=== PATIENT | male | born 1975 | race Caucasian/White ===

== ENCOUNTER 2023-10-30 18:27 | Emergency (ER) | payer OTHER ==
[2023-10-30] MEDS ORDERED: NA CHLORIDE 0.9% 1,000 ML ONE (19:04)
[2023-10-30 19:24] LABS: Absolute Basophils 0.1 K/uL (0-0.5); Absolute Lymphocytes (CBC) 2.4 K/uL (0.7-4.9); Absolute Neutrophil 7.1 K/uL (1.8-8.0); Basophils % 0.5 % (0-1.3); Eosinophils % 0.2 % (0-4.4); Hematocrit 45.7 % (39.6-49.0); Hemoglobin 15.8 g/dL (13.6-17.9); Lymphocytes % 22.4 % (15.3-44.8); MCHC 34.5 g/dL (32.0-36.0); MCV 92.6 fL (80-100); MPV 8.2 fL (7.6-11.3); Monocytes % 9.5 % (3.3-12.3); Neutrophils % 67.4 % (41.7-73.7); Nucleated Red Blood Cells % 0.1 % (0-0); Platelets 227 thou/uL (152-406); RBC Red Blood Cell Count 4.93 M/uL (4.33-5.43); Red Cell Distribution Width 12.2 % (12.1-15.2)
[2023-10-30 19:49] LABS: Albumin 4.4 g/dL (3.4-5.0); Anion Gap 12.8 mEq/L (5.0-15.0); Bilirubin Total 1.5 mg/dL (0.2-1.0); Globulin 4.6 g/dL (2.3-3.5); Magnesium 2.3 mg/dL (1.6-2.4); Potassium 2.8 mEq/L (3.5-5.1)
[2023-10-30] MEDS ORDERED: POTASSIUM CL SA 10 MEQ TAB PO ONE (20:46)
--- NOTE | 2023-10-30 21:46 | ER ---
Nurse's Notes [facility] Name: Alejandro Horan Jr Age: 47 yrs Sex: Male : 1975 Arrival Date: 10/30/2023 Time: 18:27 Bed 16 Private MD: Diagnosis: Rash and other nonspecific skin eruption;Dehydration;Hypokalemia Presentation: 10/29 18:38 Chief complaint: Patient states: pt has been sleeping a lot the last several days an as6 has gotten easily fatigued. pt has rash to trunk and arms. Coronavirus screen: At this time, the client does not indicate any symptoms associated with coronavirus-19. Ebola Screen: No symptoms or risks identified at this time. Initial Sepsis Screen: Does the patient meet any 2 criteria? No. Patient's initial sepsis screen is negative. Does the patient have a suspected source of infection? No. Patient's initial sepsis screen is negative. Risk Assessment: Do you want to hurt yourself or someone else? Patient reports no desire to harm self or others. Onset of symptoms was October 28, 2023. 18:38 Method Of Arrival: Ambulatory as6 18:38 Acuity: DC 3 as6 Historical: - Allergies: 18:41 No Known Allergies; as6 - PMHx: 18:41 None; as6 - PSHx: 18:41 abdominal; as6 - Immunization history:: Adult Immunizations up to date. - Infectious Disease History:: Denies. - Social history:: Smoking status: Patient reports use of chewing tobacco. Screenin:21 [facility] ED Fall Risk Assessment (Adult) History of falling in the last 3 months, tl4 including since admission No falls in past 3 months (0 pts) Confusion or Disorientation No (0 pts) Intoxicated or Sedated No (0 pts) Impaired Gait No (0 pts) Mobility Assist Device Used No (0 pt) Altered Elimination No (0 pt) Score/Fall Risk Level 0 - 2 = Low Risk Oriented to surroundings, Maintained a safe environment, Educated pt \T\ family on fall prevention, incl call for assistance when getting out of bed, Assessed \T\ reinforced patient's understanding of fall precautions. Abuse screen: Denies threats or abuse. Denies injuries from another. Nutritional screening: No deficits noted. Tuberculosis screening: No symptoms or risk factors identified. Assessment: 19:22 General: Appears in no apparent distress. Behavior is calm, cooperative. Pain: Denies tl4 pain. Neuro: Level of Consciousness is awake, alert, obeys commands, Oriented to person, place, time, situation, Moves all extremities. Full function Gait is steady, Speech is normal. Cardiovascular: Capillary refill < 3 seconds Patient's skin is warm and dry. Respiratory: Airway is patent Respiratory effort is even, unlabored, Respiratory pattern is regular, symmetrical, Breath sounds are clear bilaterally. GI: No deficits noted. : No signs and/or symptoms were reported regarding the genitourinary system. EENT: No signs and/or symptoms were reported regarding the EENT system. Derm: Rash noted that is red, raised, on chest, abdomen, right arm and left arm. Musculoskeletal: No signs and/or symptoms reported regarding the musculoskeletal system. 20:37 Reassessment: Patient and/or family updated on plan of care and expected duration. Pain tl4 level reassessed. Patient is alert, oriented x 3, equal unlabored respirations, skin warm/dry/pink. Patient denies pain at this time. 21:57 Reassessment: Patient and/or family updated on plan of care and expected duration. Pain tl4 level reassessed. Patient is alert, oriented x 3, equal unlabored respirations, skin warm/dry/pink. Vital Signs: 18:38 BP 155 / 107; Pulse 118; Resp 20 S; Temp 99(TE); Pulse Ox 97% on R/A; Weight 90.72 kg as6 (R); Height 6 ft. 0 in. (R); Pain 0/10; 19:00 BP 143 / 99; Pulse 89; Resp 16; Pulse Ox 100% on R/A; tl4 19:30 BP 134 / 95; Pulse 91; Resp 23; Pulse Ox 98% on R/A; tl4 20:00 BP 139 / 78; Pulse 83; Resp 20; Pulse Ox 98% on R/A; tl4 21:00 BP 134 / 85; Pulse 97; Resp 22; Pulse Ox 97% on R/A; tl4 21:58 BP 142 / 85; Pulse 98; Resp 19; Temp 97.8(TE); Pulse Ox 97% on R/A; Pain 0/10; tl4 18:38 Body Mass Index 27.12 (90.72 kg, 182.88 cm) as6 18:38 Pain Scale: Adult as6 21:58 Pain Scale: Adult tl4 ED Course: 18:31 Patient arrived in ED. im 18:33 [facility] kb 18:33 Laron Martinez MD is Attending Physician. kb 18:37 Arm band placed on. as6 18:41 Triage completed. as6 18:58 Satish Ramos, RN is Primary Nurse. tl4 19:18 EKG done, by ED staff. vk 19:20 Lipase Sent. tl4 19:20 CPK Sent. tl4 19:20 CMP Sent. tl4 19:20 CBC with Diff Sent. tl4 19:20 Magnesium Sent. tl4 19:20 Troponin HS Sent. tl4 19:20 No provider procedures requiring assistance completed. Initial lab(s) drawn, by me, tl4 sent to lab. Inserted saline lock: 22 gauge in left antecubital area, using aseptic technique. Blood collected. 19:21 Patient has correct armband on for positive identification. Placed in gown. Bed in low tl4 position. Call light in reach. Side rails up X 1. Provided Education on: ED process, call garza. Client placed on continuous cardiac and pulse oximetry monitoring. NIBP monitoring applied. wastewater treatment operator on. Door closed. Noise minimized. Lights dimmed. Moved to private room. 21:59 IV discontinued, intact, bleeding controlled, No redness/swelling at site. Pressure tl4 dressing applied. Administered Medications: 19:20 Drug: NS 0.9% IV 1000 ml IV at 1000 ml once Route: IV; Rate: 1000 ml; Site: left tl4 antecubital; Delivery: Primary tubing; 20:36 Follow up: Response: No adverse reaction; IV Status: Completed infusion; IV Intake: tl4 1000ml 20:48 Drug: Potassium Chloride PO 40 mEq PO once Route: PO; tl4 22:05 Follow up: Response: No adverse reaction tl4 Medication: 19:21 VIS not applicable for this client. tl4 Intake: 20:36 IV: 1000ml; Total: 1000ml. tl4 Outcome: 21:45 Discharge ordered by . kb 21:59 Discharged to home ambulatory, tl4 21:59 Condition: good 21:59 Discharge instructions given to patient, 21:59 Instructed on discharge instructions, follow up and referral plans. Demonstrated understanding of instructions, follow-up care, 22:05 Patient left the ED. tl4 Signatures: Julita Reardon, GLEN MOLINA-Manas Olmos, RN RN as6 Noemi Mccall Toni RN RN tl4 Tati Michel
--- NOTE | 2023-10-30 21:46 | EDPHYS ---
Physician Documentation [facility] Name: Alejandro Horan Jr Age: 47 yrs Sex: Male : 1975 Arrival Date: 10/30/2023 Time: 18:27 Bed 16 Private MD: ED Physician Laron Martinez HPI: 10/30 00:22 This 47 yrs old Male presents to ER via Ambulatory with complaints of Rash. kb 00:26 Patient is a 47-year-old male who presents for fatigue. States he used to be a heavy kb drinker but quit about 6 weeks ago. States he started using CBD Gummies after he stopped drinking then stopped using those 6 days ago. Was working in the yard on Saturday, 3 days ago, and got overheated and fatigued so he went to sleep around 1400 and didn't wake up until today. States his significant other told him he got up to use the restroom a couple of times but he does not remember that. Also reports rash to trunk and upper extremeties that he woke up with. Denies fever, cough, congestion. . Historical: - Allergies: 10/29 18:41 No Known Allergies; as6 - PMHx: 18:41 None; as6 - PSHx: 18:41 abdominal; as6 - Immunization history:: Adult Immunizations up to date. - Infectious Disease History:: Denies. - Social history:: Smoking status: Patient reports use of chewing tobacco. ROS: 10/30 00:26 Constitutional: As per HPI kb Exam: 00:26 Constitutional: This is a well developed, well nourished patient who is awake, alert, kb and in no acute distress. Head/Face: Normocephalic, atraumatic. ENT: Moist Mucous membranes Cardiovascular: Regular rate Respiratory: Respirations even and unlabored. No increased work of breathing. Talking in full sentences Abdomen/GI: Soft, non-tender. No distention MS/ Extremity: Pulses equal, no cyanosis. Neurovascular intact. Full, normal range of motion. Neuro: Awake and alert, GCS 15, oriented to person, place, time, and situation. Moves all extremities. Normal gait. 00:26 Skin: rash can be described as nonspecific, on the chest, abdomen, right arm and left arm, Vital Signs: 10/29 18:38 BP 155 / 107; Pulse 118; Resp 20 S; Temp 99(TE); Pulse Ox 97% on R/A; Weight 90.72 kg as6 (R); Height 6 ft. 0 in. (R); Pain 0/10; 19:00 BP 143 / 99; Pulse 89; Resp 16; Pulse Ox 100% on R/A; tl4 19:30 BP 134 / 95; Pulse 91; Resp 23; Pulse Ox 98% on R/A; tl4 20:00 BP 139 / 78; Pulse 83; Resp 20; Pulse Ox 98% on R/A; tl4 21:00 BP 134 / 85; Pulse 97; Resp 22; Pulse Ox 97% on R/A; tl4 21:58 BP 142 / 85; Pulse 98; Resp 19; Temp 97.8(TE); Pulse Ox 97% on R/A; Pain 0/10; tl4 18:38 Body Mass Index 27.12 (90.72 kg, 182.88 cm) as6 18:38 Pain Scale: Adult as6 21:58 Pain Scale: Adult tl4 MDM: 18:33 Patient medically screened. kb 10/30 00:26 Differential diagnosis: Dehydration, rhabdomyolysis, abnormal electrolytes, kidney kb failure. Data reviewed: vital signs, nurses notes. Consideration of Admission/Observation Escalation of care including admission/observation considered. Admission considered but patient reports he is feeling okay, is nontoxic in appearance, tolerating p.o. intake, afebrile, vitals within normal limits. Educated on return precautions and need for follow-up with PCP.. Counseling: I had a detailed discussion with the patient and/or guardian regarding the historical points, exam findings, and any diagnostic results supporting the discharge/admit diagnosis, lab results, radiology results, the need for outpatient follow up, a family practitioner, to return to the emergency department if symptoms worsen or persist or if there are any questions or concerns that arise at home. 10/29 18:45 Order name: CBC with Diff; Complete Time: 19:32 kb 10/29 18:45 Order name: Magnesium; Complete Time: 20:08 kb 10/29 18:45 Order name: Troponin HS; Complete Time: 20:08 kb 10/29 18:45 Order name: CMP; Complete Time: 20:08 kb 10/29 18:45 Order name: Lipase; Complete Time: 20:08 kb 10/29 18:45 Order name: CPK; Complete Time: 20:08 kb 10/29 18:45 Order name: EKG; Complete Time: 18:45 kb 10/29 18:45 Order name: Cardiac monitoring; Complete Time: 19:09 kb 10/29 18:45 Order name: EKG - Nurse/Tech; Complete Time: 19:18 kb 10/29 18:45 Order name: IV Saline Lock; Complete Time: 19:20 kb 10/29 18:45 Order name: Labs collected and sent; Complete Time: 19:20 kb 10/29 18:45 Order name: O2 Per Protocol; Complete Time: 19:20 kb 10/29 18:45 Order name: O2 Sat Monitoring; Complete Time: 19:20 kb 10/29 20:33 Order name: Vital Signs; Complete Time: 20:36 kb Administered Medications: 10/29 19:20 Drug: NS 0.9% IV 1000 ml IV at 1000 ml once Route: IV; Rate: 1000 ml; Site: left tl4 antecubital; Delivery: Primary tubing; 20:36 Follow up: Response: No adverse reaction; IV Status: Completed infusion; IV Intake: tl4 1000ml 20:48 Drug: Potassium Chloride PO 40 mEq PO once Route: PO; tl4 22:05 Follow up: Response: No adverse reaction tl4 Disposition Summary: 10/30/23 21:45 Discharge Ordered Notes: Location: Home kb Condition: Stable kb Diagnosis - Rash and other nonspecific skin eruption kb - Dehydration kb - Hypokalemia kb Followup: kb - With: Emergency Department - When: As needed - Reason: Worsening of condition Followup: kb - With: Private Physician - When: 2 - 3 days - Reason: Recheck today's complaints, Continuance of care, Re-evaluation by your physician Discharge Instructions: - Discharge Summary Sheet kb - Rash, Adult, [id number] kb - Dehydration, Adult, [id number] kb - Hypokalemia kb Forms: - Medication Reconciliation Form kb - Antibiotic Education kb - Prescription Opioid Use kb - Patient Portal Instructions kb - Leadership Thank You Letter kb Signatures: Dispatcher [employer] uJlita Arguelles FNP-C FNP-Ckb Slawson, Ashby, RN RN as6 Satish Ramos RN RN tl4 Corrections: (The following items were deleted from the chart) 18:45 18:45 CBC+H.LAB.BRZ ordered. EDMS EDMS 18:45 18:45 MAGNESIUM+C.LAB.BRZ ordered. EDMS EDMS 18:45 18:45 Troponin High Sensitivity+C.LAB.BRZ ordered. EDMS EDMS 18:45 18:45 COMPREHENSIVE METABOLIC PANEL+C.LAB.BRZ ordered. EDMS EDMS 18:45 18:45 LIPASE+C.LAB.BRZ ordered. EDMS EDMS 18:45 18:45 CREATINE PHOSPHOKINASE+C.LAB.BRZ ordered. EDMS EDMS
[2023-10-30 22:10] VITALS: O2SAT 97
[2023-10-30 22:31] VITALS: BP 142/85; TEMP 97.8
== END 2023-10-30 22:05 | disposition home or self-care (01) ==
LOC: ER 18:27
DX: E86.0 Dehydration (principal); E87.6 Hypokalemia; R21 Rash and other nonspecific skin eruption; F17.220 Nicotine dependence, chewing tobacco, uncomplicated
CPT/HCPCS: 85025; 36415; 83735; 82550; 84484; 83690; 80053; J7030; 93005